=== PATIENT | female | born 1975 | race Caucasian/White ===

== ENCOUNTER → 2017-10-19 14:40 | Outpatient (CLI) | payer OTHER, SELFPAY ==
[2017-10-19 17:30] LABS: Eosinophils Percent Auto 1.5 % (2-4); Hematocrit 34.2 % (36-46); Hemoglobin 10.9 g/dL (12.0-16.0); Lymphocytes Percent Auto 40.5 % (25-40); Mean Corpuscular HGB Conc 31.8 % (30-36); Mean Corpuscular Hemoglobin 23.1 PG (26-34); Mean Corpuscular Volume 72.6 fL (80-100); Neutrophils Absolute Auto 900 /uL (3000-5900); Platelet Count 175 X10^3/uL (150-400); Red Blood Cell Count 4.72 X10^6/uL (4.0-5.2); Red Cell Distribution Width 20.2 % (11.6-14.8); White Blood Cell Count 2.1 X10^3/uL (4.5-11.0)
[2017-10-19 17:31] LABS: Add Manual Diff / Slide Review SLIDE REVIEW
[2017-10-19 19:18] LABS: Anisocytosis 2+; Hypochromasia 1+; Ovalocytes 1+; Poikilocytosis 1+
[2017-10-19 19:19] LABS: Microcytosis 1+
== END ==
PROVIDERS: Family Provider Family Medicine; PCP Family Medicine; Visit Provider Nurse Practitioner Family
DX: K92.2 Gastrointestinal hemorrhage, unspecified (principal)
CPT/HCPCS: 36415; 85025

== ENCOUNTER → 2017-10-23 11:13 | Outpatient (CLI) | payer OTHER, SELFPAY ==
[2017-10-23 12:46] LABS: Carcinoembryonic Antigen 1.1 ng/mL (0.1-3.0)
[2017-10-26 12:22] LABS: Fecal Immunochemical Test NOT DETECTED
== END ==
PROVIDERS: Family Provider Family Medicine; PCP Family Medicine; Visit Provider Nurse Practitioner Family
DX: K92.2 Gastrointestinal hemorrhage, unspecified (principal); K92.1 Melena; R19.00 Intra-abdominal and pelvic swelling, mass and lump, unspecified site
CPT/HCPCS: 36415; 82274; 82378

== ENCOUNTER → 2017-11-01 15:08 | Outpatient (CLI) | payer OTHER, SELFPAY ==
[2017-11-01 16:12] LABS: Add Manual Diff / Slide Review NO; Basophils Percent Auto 0.7 % (0-2); Eosinophils Percent Auto 0.6 % (2-4); Hematocrit 34.5 % (36-46); Hemoglobin 11.1 g/dL (12.0-16.0); Lymphocytes Percent Auto 26.6 % (25-40); Mean Corpuscular HGB Conc 32.3 % (30-36); Mean Corpuscular Hemoglobin 23.2 PG (26-34); Mean Corpuscular Volume 71.9 fL (80-100); Monocytes Percent Auto 11.3 % (3-14); Neutrophils Absolute Auto 1800 /uL (3000-5900); Neutrophils Percent Auto 60.8 % (50-75); Platelet Count 187 X10^3/uL (150-400); Red Cell Distribution Width 20.2 % (11.6-14.8); White Blood Cell Count 2.9 X10^3/uL (4.5-11.0)
[2017-11-01 16:28] LABS: Anisocytosis 2+; Poikilocytosis 1+
--- NOTE | 2017-11-01 16:28 | DI.US.S_ITS ---
PROCEDURE: US ABDOMEN LIMITED INDICATIONS: small-1cm node/mass just inferior to umbilicus TECHNIQUE: Real-time focused scanning was performed of the abdomen, with image documentation. COMPARISON: [facility], , PELVIC COMPLETE, 08/04/2014, 19:24. FINDINGS: Targeted sonographic imaging at the site of the area of clinical concern was performed, which is noted to be within the periumbilical region. Within this region, there is no cystic or solid abnormality. No loculated fluid collection is evident. Anterior abdominal wall appears to be intact without evidence of a hernia evident. Valsalva maneuver was also performed during this examination. No enlarged lymph nodes are identified. IMPRESSION: No sonographic abnormality is evident to correlate with the palpable abnormality. Please consider contrast enhanced abdominal CT for further evaluation. Dictated by: Artem Vargas M.D. on 11/01/2017 at 15:37 Approved by: Artem Vargas M.D. on 11/01/2017 at 15:39
[2017-11-01 17:20] LABS: HEMOLYSIS < 15 (0-50); Iron 25 ug/dL (37-170)
[2017-11-01 17:21] LABS: Lactate Dehydrogenase 378 U/L (313-618)
[2017-11-01 17:31] LABS: Percent Iron Saturation 6 % (15-50); Total Iron Binding Capacity 442 ug/dL (265-497); Transferrin 351 mg/dL (206-381)
[2017-11-01 17:57] LABS: Ferritin 5.7 ng/mL (6.27-137)
[2017-11-01 18:12] LABS: Vitamin B12 222 pg/mL (239-931)
[2017-11-03 15:07] LABS: Haptoglobin 95 mg/dL (43-212)
== END ==
PROVIDERS: Family Provider Family Medicine; PCP Family Medicine; Visit Provider Nurse Practitioner Family
DX: R19.00 Intra-abdominal and pelvic swelling, mass and lump, unspecified site (principal)
CPT/HCPCS: 36415; 76705; 82607; 82728; 83010; 83540; 83550; 83615; 85025

== ENCOUNTER → 2017-12-15 16:27 | Outpatient (CLI) | payer OTHER, SELFPAY ==
[2017-12-15 18:13] LABS: Add Manual Diff / Slide Review NO; Eosinophils Percent Auto 1.6 % (2-4); Hematocrit 36.2 % (36-46); Hemoglobin 11.6 g/dL (12.0-16.0); Lymphocytes Percent Auto 33.2 % (25-40); Mean Corpuscular Hemoglobin 25.4 PG (26-34); Mean Corpuscular Volume 79.5 fL (80-100); Monocytes Percent Auto 12.5 % (3-14); Neutrophils Absolute Auto 1100 /uL (3000-5900); Neutrophils Percent Auto 51.7 % (50-75); Platelet Count 214 X10^3/uL (150-400); Red Blood Cell Count 4.56 X10^6/uL (4.0-5.2); Red Cell Distribution Width 21.6 % (11.6-14.8)
[2017-12-15 19:16] LABS: HEMOLYSIS 45 (0-50); Iron 85 ug/dL (37-170)
[2017-12-15 19:17] LABS: Anisocytosis 2+
[2017-12-15 19:27] LABS: Percent Iron Saturation 21 % (15-50); Total Iron Binding Capacity 405 ug/dL (265-497); Transferrin 335 mg/dL (206-381)
[2017-12-16 16:58] LABS: TSH w/ Reflex to FT4 1.51 uIU/mL (0.47-4.68)
[2017-12-16 17:02] LABS: Ferritin 15.1 ng/mL (6.27-137)
== END ==
PROVIDERS: Family Provider Family Medicine; PCP Family Medicine; Visit Provider Family Medicine
DX: D64.9 Anemia, unspecified (principal); K92.2 Gastrointestinal hemorrhage, unspecified; R53.83 Other fatigue
CPT/HCPCS: 36415; 82728; 83540; 83550; 84443; 85025

== ENCOUNTER 2019-03-17 09:59 | Day surgery (SDC) | payer OTHER, SELFPAY ==
[2019-03-03 08:26] VITALS: BMI 23.0
[2019-03-17] VITALS (9 sets, daily range): BP systolic 100–123; BP diastolic 50–80; PULSE 65–98; RESP 10–16; TEMP 36.6–36.7; O2SAT 98–100; BMI 23.0
[2019-03-17] MEDS: LACTATED RINGERS 1,000 ML 100 ML IV (10:25)
[2019-03-17] MEDS: CEFAZOLIN 2 GM/100 ML FROZ.PIGGY IV (11:31)
--- NOTE | 2019-03-17 11:50 | SUR.OPER ---
Lithotomy on padded OR bed, head on pillow, arms secured on padded arm boards at <90 degrees abduction. Legs secured in padded yellow fins stirrups.
[2019-03-17] MEDS: SODIUM CHLORIDE 0.9% 100 ML INJ (12:00)
[2019-03-17] MEDS: BUPIVACAINE 0.25% W/ EPI (PF) 10 ML VIAL 70 ML INJ (12:00)
--- NOTE | 2019-03-17 13:24 | SUR.PHASEII ---
Dr. Mathew speaking to patient. Urine clear/pale with very light pink tinge. Denies pain/nausea
--- NOTE | 2019-03-17 14:16 | SUR.PHASEII ---
Reviewed leg bag instructions with pt. pt demostration understanding by attaching leg beg. dressed independently with leg bag attached. Escorted to ED entrance with original bag, instructions and supplies by [facility]
--- NOTE | 2019-04-09 19:51 | PM.HP.1 ---
History of Present Illness History of Present Illness Date Patient Seen: 03/17/19 Time Patient Seen: 11:00 Chief complaint: [id number] Narrative: Patient is a 43-year-old 3 para 3 with stress urinary incontinence She presents today for a TVT with cystoscopy Patient History Family & Social History Social History: household members spouse Tobacco & Substance use: Smoking Status Never smoker Meds Home Medications and Allergies Home Medications Medication Instructions Recorded Confirmed Type nitrofurantoin monohyd/m-cryst 100 mg PO BID #14 cap 03/17/19 Rx [Macrobid] oxycodone-acetaminophen [Percocet] 1 tab PO Q4-6H PRN #14 tab 03/17/19 Rx Allergies Allergy/AdvReac Type Severity Reaction Status Date / Time No Known Drug Allergies Allergy Verified 03/17/19 10:12 Exam Vital Signs (past 8 hours): Oxygen Delivery Method Room Air Narrative Exam Narrative: HEENT: No thyromegaly, no anterior cervical or supraclavicular lymphadenopathy. Lungs:Clear to auscultation bilaterally, no wheezes. Cardiovascular: Regular rate and rhythm, no murmurs, rubs, or gallops. Abdomen: Well-healed laparoscopy scars. No hepatosplenomegaly. No masses palpable. External genitalia: Normal Vagina: Increased urethrovesical angle with Valsalva Cervix: Normal Bimanual exam: 6 Week size uterus. Mobile. No adnexal masses or tenderness Rectal: No masses. Assessment & Plan Assessment & Plan narrative: Assessment: 43-year-old 3 para 3 with stress urinary incontinence and an increased urethrovesical angle with Valsalva Plan: TVT with cystoscopy The risks, benefits, and alternatives to the procedure were explained to the patient. The risks including bleeding, infection, injury to the bladder, ureters, or urethra. She understands these risks and agrees to proceed. A full par Q was held and consent form was signed. Time Spent With Patient Time with patient: 15-24 minutes
--- NOTE | 2019-04-09 19:52 | PM.GYNOP.1 ---
Operative Date/Time/Diagnoses Date of procedure: 03/17/19 Time of procedure: 13:30 Pre-op diagnosis: Stress urinary incontinence Post-op diagnosis: same Procedure & Clinicians Procedure: Procedures Operation Date: 03/17/19 11:15 Actual Procedures Side Surgeon p Tensionless Vaginal Tape- W/ Cystoscopy Tamara Mathew MD Indications: Stress urinary incontinence Increased urethrovesical angle with Valsalva Surgeon: Tamara Mathew [employer] Former: Eugenia Glez Anesthesia Type: General Operative Notes Findings: Bowel in the dome of the bladder Cystotomy on the left side Increased urethrovesical angle with Valsalva Closure Type: primary Specimen(s): none Applied: catheter (Remained in place at the end of the case) Estimated blood loss (mL): 10 Blood products transfused: none Procedure in detail: After informed consent was obtained, the patient was taken to the operating room where she was placed in the dorsal supine position. After adequate general endotracheal anesthesia was achieved, she was placed in the dorsal lithotomy position, and prepped and draped in the usual sterile fashion. A time-out was performed. A weighted speculum was placed into the vagina. Allis clamps were placed lateral to the urethra approximately 1.5 cm from the urethral meatus. 3 cc of 0.25% Marcaine with epinephrine were injected submucosally. Attention was then turned to the abdomen. The patient was placed flat on the table with her thighs perpendicular to the floor. Her bladder was emptied. 100 cc of a dilute 0.25% Marcaine solution and saline were injected behind the pubic symphysis into the space of Retzius. Attention was then turned back to the vagina. A 1.5 cm incision was made 1.5 cm away from the urethral meatus. This was dissected out laterally with the Metzenbaum scissors. With the rigid catheter in the bladder the bladder neck was retracted away from the patient's right side. 10 cc of 0.25% Marcaine with epinephrine were injected along the proposed path of the TVT. This was repeated on the patient's left side with the bladder neck retracted away from the patient's left side. Hegar dilators to the 7. Dilator were used along the proposed path of the TVT. The TVT was then directed on the patient's right side towards the patient's right shoulder, perforating the urogenital diaphragm, and then coming up behind the pubic symphysis approximately 2 cm from the midline. The TVT was removed from the introducer and grasped with Osvaldo. This was repeated on the patient's left side with the bladder neck retracted away from the patient's left side. The bladder was filled with 240 cc of sterile water. A cystoscopy was performed. There was a bubble at the dome of the bladder. There was a small perforation on the patient's left side with the TVT applicator. The bladder was emptied. The TVT was retracted and redirected on the patient's left side towards the patient's left shoulder and up behind the pubic symphysis 2 cm to the left of midline. The bladder was again filled with 240 cc of sterile water. The cystoscopy was performed and there was no perforation. There was no bleeding in the bladder. The TVT on the left side was removed from the introducer. The TVT was pulled up to within half a cm of the urethra, with care not to over tighten. The patient was made to cough and there was a small leak. The TVT was tightened slightly and then there was just 1 drop of urine on coughing. The TVT was cut below the skin line without over tightening. A # 7 Hegar dilator was passed into the urethra without any problem. A Mcwilliams catheter was placed into the bladder to remain for 7 days. The incisions on the abdomen were closed with surgical glue. In the vagina the mucosa was closed with 3 0 Vicryl in a running interlocking stitch. Hemostasis was achieved. The weighted speculum was removed from the vagina, and the Allis clamps were removed from the vaginal mucosa. Sponge, lap, and instrument counts were correct x2. The patient tolerated the procedure well, and was taken to PACU in stable condition. Complications: other (Cystotomy on the left side) Post-operative Condition: stable Disposition: PACU Plan for aftercare: Home after recovery with Mcwilliams catheter in place
== END 2019-03-17 14:19 | disposition home or self-care (01) ==
PROVIDERS: Family Provider Family Medicine; PCP Family Medicine; Visit Provider Obstetrics & Gynecology
PROC: 0TSD0ZZ Reposition Urethra, Open Approach (ICD-10-PCS; CPT 57288; principal; 2019-03-17 11:15)
DX: N39.3 Stress incontinence (female) (male) (principal)
CPT/HCPCS: 57288; C1771; J0330; J0690; J1100; J1885; J2250; J2405; J2704; J3010

== ENCOUNTER → 2019-04-05 12:05 | Outpatient (CLI) | payer OTHER, SELFPAY ==
[2019-04-05 13:50] LABS: Free T4, Direct Thyroxine 1.19 ng/dL (0.78-2.19)
[2019-04-05 14:03] LABS: Thyroid Stimulating Hormone 1.39 uIU/mL (0.47-4.68)
[2019-04-05 16:45] LABS: Follicle Stimulating Hormone 5.13 mIU/mL
== END ==
PROVIDERS: Family Provider Family Medicine; PCP Family Medicine; Visit Provider Obstetrics & Gynecology
DX: N92.6 Irregular menstruation, unspecified (principal)
CPT/HCPCS: 36415; 83001; 84439; 84443

== ENCOUNTER → 2019-04-15 10:06 | Outpatient (CLI) | payer OTHER, SELFPAY ==
--- NOTE | 2019-04-15 10:07 | DI.MG.S_ITS ---
BILATERAL DIGITAL SCREENING MAMMOGRAM 3D/2D WITH CAD: 04/15/2019 CLINICAL: Routine screening. Baseline exam. No prior exams were available for comparison. The tissue of both breasts is heterogeneously dense. This may lower the sensitivity of mammography. Current study was also evaluated with a Computer Aided Detection (CAD) system. There is an irregular equal density asymmetry with an indistinct margin in the left breast at 1 o'clock middle depth. No other significant masses, calcifications, or other findings are seen in either breast. IMPRESSION: INCOMPLETE: NEEDS ADDITIONAL IMAGING EVALUATION The irregular equal density asymmetry in the left breast is indeterminate. Mediolateral and spot compression views as well as additional views with possible ultrasound are recommended. This exam was interpreted at Station ID: [id number]. NOTE: For mammograms, a report in lay terms will be sent to the patient. Approximately 15% of breast malignancies will not be visualized mammographically. In the management of a palpable breast mass, a negative mammogram must not discourage biopsy of a clinically suspicious lesion. Electronically Signed By: Deshawn hall/britni:04/17/2019 09:21:07 letter sent: Additional Imaging Needed ACR BI-RADS Category 0: Incomplete [id number]
== END ==
PROVIDERS: Family Provider Family Medicine; PCP Family Medicine; Referring Provider Obstetrics & Gynecology; Visit Provider Obstetrics & Gynecology
DX: Z12.31 Encounter for screening mammogram for malignant neoplasm of breast (principal)
CPT/HCPCS: 77063; 77067

== ENCOUNTER → 2019-05-03 10:10 | Outpatient (CLI) | payer OTHER, SELFPAY ==
--- NOTE | 2019-05-03 10:14 | DI.US.S_ITS ---
ULTRASOUND OF LEFT BREAST: 05/03/2019 CLINICAL: Patient returns today to evaluate a focal asymmetry in the left breast. Comparison is made to exams dated: 04/15/2019 mammogram and 05/03/2019 mammogram - [facility]. Real-time ultrasound of the left breast was performed. Pinto scale images of the real-time examination were reviewed. No significant abnormalities were seen sonographically in the left breast. IMPRESSION: BENIGN There is no sonographic evidence of malignancy. There is no abnormality seen in the left breast to correspond with the mammography finding which likely represents normal fibroglandular tissue. A 1 year screening mammogram is recommended. This exam was interpreted at Station ID: [id number]. Electronically Signed By: Justino Solis M.D. at/:05/03/2019 11:28:39 letter sent: Normal Exam Ultrasound BI-RADS: 2 Benign
--- NOTE | 2019-05-03 10:15 | DI.MG.S_ITS ---
UNILATERAL LEFT DIGITAL DIAGNOSTIC MAMMOGRAM 3D/2D WITH ADDITIONAL VIEWS: 05/03/2019 CLINICAL: Additional evaluation requested from prior study. Comparison is made to exam dated: 04/15/2019 [facility]. The tissue of left breast is heterogeneously dense. This may lower the sensitivity of mammography. The previously described irregular equal density asymmetry in the left breast at 1 o'clock middle depth is less prominent and decreased in size with near complete dispersion on spot compression. No other significant masses or calcifications are seen in the breast. IMPRESSION: INCOMPLETE: NEEDS ADDITIONAL IMAGING EVALUATION The irregular equal density asymmetry in the left breast is indeterminate. An ultrasound is recommended for further evaluation and is scheduled to immediately follow this study. This exam was interpreted at Station ID: [id number]. NOTE: For mammograms, a report in lay terms will be sent to the patient. Approximately 15% of breast malignancies will not be visualized mammographically. In the management of a palpable breast mass, a negative mammogram must not discourage biopsy of a clinically suspicious lesion. Electronically Signed By: Justino Solis M.D. aty/:05/03/2019 11:25:45 ACR BI-RADS Category 0: Incomplete [id number]
== END ==
PROVIDERS: Family Provider Family Medicine; PCP Family Medicine; Referring Provider Obstetrics & Gynecology; Visit Provider Obstetrics & Gynecology
DX: R92.8 Other abnormal and inconclusive findings on diagnostic imaging of breast (principal); N64.89 Other specified disorders of breast
CPT/HCPCS: 76642; 77065; G0279